=== PATIENT | female | born 1985 | race Hispanic/Latino ===

== ENCOUNTER → 2020-04-06 | Outpatient (REF) | payer OTHER | LOC: M LAB REF 06:55 | PROVIDERS: ATTEND Physician Assistant | DX: R30.0 Dysuria (principal) ==

== ENCOUNTER → 2020-05-17 | Outpatient (REF) | payer OTHER ==
[2020-05-19 09:39] LABS: CHLAMYDIA DNA AMPLIFICATION NEGATIVE (NEGATIVE); GC DNA AMPLIFICATION NEGATIVE (NEGATIVE)
== END ==
LOC: M LAB REF 16:13
PROVIDERS: ATTEND Physician Assistant
DX: R30.0 Dysuria (principal)

== ENCOUNTER 2022-06-02 09:49 | Emergency (ER) | payer OTHER ==
[~2022-06-02] VITALS: Ht 162.6 cm; Wt 59.2 kg
[2022-06-02 09:49] VITALS: BP 113/72
[2022-06-02] MEDS ORDERED: RIZA10TA64 PO (10:00)
[2022-06-02] MEDS ORDERED: PEPC10TA6 PO (10:00)
[2022-06-02] MEDS ORDERED: ISOVUE-370 76% 100ML VIAL As Ordered ONE (13:06)
[2022-06-02] MEDS ORDERED: IBUPROFEN 600MG TAB PO ONE (14:50)
== END 2022-06-02 15:40 | disposition home or self-care (01) ==
LOC: M ED 09:49
DX: M54.2 Cervicalgia (principal); R22.1 Localized swelling, mass and lump, neck; Y04.8XXA Assault by other bodily force, initial encounter
CPT/HCPCS: 36415; 70498; 80047; 84702; 99284; Q9967